=== PATIENT | female | born 1990 | race Caucasian/White ===

== ENCOUNTER → 2017-05-01 | Outpatient (CLI) | payer OTHER ==
--- NOTE | 2017-05-01 20:53 | EKG REPORT ---
SEVERITY:- BORDERLINE ECG - SINUS RHYTHM BORDERLINE T WAVE ABNORMALITIES : Confirmed by: Chelsea Stanford 01-May-2017 20:53:22
== END ==
LOC: CCC 10:29
DX: R11.0 Nausea (principal); R00.0 Tachycardia, unspecified
CPT/HCPCS: 36415; 86677; 93005; 93010

== ENCOUNTER 2017-06-26 00:36 | Emergency (ER) | payer OTHER ==
[2017-06-26] MEDS ORDERED: CEPHALEXIN 500 MG CAPSULE PO ONE (01:09)
--- NOTE | 2017-06-26 01:30 | ER Document Report ---
HPI - HPI Patient complains to provider of: skin abnormality Pain Level: 3 Context: Patient is a 27 year old female that comes to the ED for chief complaint of rash on her right arm and abdomen. Abdomen present for weeks, right arm rash present about 2 days. She denies couch or any significant outdoor exposure. Unsure if relatives have the same. Denies noticing a bite. Denies diabetes. Tetanus UTD. Denies fever/chills, N/V. - REPRODUCTIVE Reproductive: DENIES: : - DERM Skin Color: Normal Past Medical History - General Information source: Patient - Social History Smoking Status: Never Smoker Frequency of alcohol use: None Drug Abuse: None Lives with: Family Family History: Reviewed & Not Pertinent Patient has suicidal ideation: No Patient has homicidal ideation: No - Past Medical History Cardiac Medical History: Reports: Hx Hypercholesterolemia, Hx Hypertension Pulmonary Medical History: Reports: Hx Asthma, Hx Bronchitis Endocrine Medical History: Denies: Hx Diabetes Mellitus Type 1, Hx Diabetes Mellitus Type 2 Renal/ Medical History: Denies: Hx Peritoneal Dialysis GI Medical History: Reports: Hx Gastroesophageal Reflux Disease Past Surgical History: Reports: Hx Cholecystectomy - Immunizations Hx Diphtheria, Pertussis, Tetanus Vaccination: Yes - 2011 [facility] Provider Document - CONSTITUTIONAL General Appearance: WD/WN, No Apparent Distress - INFECTION CONTROL TRAVEL OUTSIDE OF THE [place] IN LAST 30 DAYS: No - HEENT HEENT: Atraumatic, Normocephalic - NECK Neck: Normal Inspection - RESPIRATORY Respiratory: Breath Sounds Normal, No Respiratory Distress O2 Sat by Pulse Oximetry: 98 - CARDIOVASCULAR Cardiovascular: Regular Rate, Regular Rhythm - GI/ABDOMEN Gastrointestinal: Abdomen Soft, Abdomen Non-Tender - BACK Back: Normal Inspection - MUSCULOSKELETAL/EXTREMETIES Musculoskeletal/Extremeties: MAEW, FROM, Non-Tender - DERM Integumentary: Rash - Excoriations over the abdomen with obvious scratched areas with very mild surrounding erythema, no induration or fluctuance. There are 3 areas on the dorsal forearm consistent with papules suspicious for insect bites. There is some surrounding erythema over the areas, no induration, fluctuance, mild amount of clear drainage. No swelling of the forearm, normal forearm exam otherwise. Course - Re-evaluation Re-evalutation: Abdominal picture is consistent with patient scratching. She admits that every night while she sleeps she scratches the areas and she cannot stop. Recommended additional clothing. Areas on the right forearm are consistent with what appears to be insect bite. No obvious fluctuance, induration, or concerning antibiotic. Both areas have some mild surrounding erythema suggesting cellulitis which is early, patient will be placed on Keflex. Discussed follow-up and return precautions. Patient states understanding and agreement. - Vital Signs Vital signs: Temp Pulse Resp BP Pulse Ox 98.5 F 67 20 148/97 H 98 06/26/17 00:37 06/26/17 00:37 06/26/17 00:37 06/26/17 00:37 06/26/17 00:37 Discharge - Discharge Clinical Impression: Skin abnormality Condition: Stable Disposition: HOME, SELF-CARE Additional Instructions: Exam consistent with bites, scratched abdomen, and questionable secondary infection. Take Keflex as prescribed. Keep areas clean, clean with soap and water, if you scratch any areas open, dress with antibiotic, if any area is open later, dress with antibiotic. Return to emergency department for any concerning symptoms including redness, swelling, fever, discolored drainage, or any other concerning symptoms. Prescriptions: Cephalexin Monohydrate [Keflex 500 mg Capsule] 500 mg PO QID #28 capsule Forms: Return to Work
[2017-06-26 02:44] VITALS: BP 124/78
== END 2017-06-26 02:40 | disposition home or self-care (01) ==
LOC: ER 00:36
DX: R21 Rash and other nonspecific skin eruption (principal); L53.9 Erythematous condition, unspecified; I10 Essential (primary) hypertension; J45.909 Unspecified asthma, uncomplicated
CPT/HCPCS: 99283

== ENCOUNTER 2017-08-15 14:44 | Emergency (ER) | payer OTHER ==
--- NOTE | 2017-08-15 15:45 | ER Document Report ---
HPI - HPI Pain Level: 2 Notes: Patient is a 27-year-old female with no significant past medical history presents the ED complaining of an insect bite to her right bicep that she first noticed yesterday. Patient states that there was some redness that she took Benadryl which resolved redness. Patient states that she does continue to have a small red scab in that area and wanted it evaluated. She has not noticed any abscess, drainage, red streaks. She still eating and drink without difficulties. Patient denies any tick bite. Patient states that the bite occurred inside of her home. Patient states that overall the insect bite is much better than it was yesterday. Denies any headache, fever, URI, sore throat , chest pain, palpitations, syncope, cough, shortness of breath, wheeze, dyspnea , abdominal pain, nausea/vomiting/diarrhea, urinary retention, dysuria, hematuria, numbness/tingling, muscle paralysis/weakness. - ROS Notes: REVIEW OF SYSTEMS: CONSTITUTIONAL : Denies fever, chills, or sweats. Denies recent illness. EENT: Denies eye, ear, throat, or mouth pain or symptoms. Denies nasal or sinus congestion or discharge. Denies throat, tongue, or mouth swelling or difficulty swallowing. CARDIOVASCULAR: Denies chest pain. Denies palpitations or racing or irregular heart beat. Denies ankle edema. RESPIRATORY: Denies cough, cold, or chest congestion. Denies shortness of breath, difficulty breathing, or wheezing. GASTROINTESTINAL: Denies abdominal pain or distention. Denies nausea, vomiting , or diarrhea. Denies blood in vomitus, stools, or per rectum. Denies black, tarry stools. Denies constipation. GENITOURINARY: Denies difficulty urinating, painful urination, burning, frequency, blood in urine, or discharge. MUSCULOSKELETAL: Denies back or neck pain or stiffness. Denies joint pain or swelling. SKIN: see hpi NEUROLOGICAL: Denies confusion or altered mental status. Denies passing out or loss of consciousness. Denies dizziness or lightheadedness. Denies headache. Denies weakness or paralysis or loss of use of either side. Denies problems with gait or speech. Denies sensory loss, numbness, or tingling. ALL OTHER SYSTEMS REVIEWED AND NEGATIVE. Dictation was performed using [employer] voice recognition software - REPRODUCTIVE Reproductive: DENIES: : - DERM Skin Color: Normal Past Medical History - Social History Smoking Status: Never Smoker Family History: Reviewed & Not Pertinent - Past Medical History Cardiac Medical History: Reports: Hx Hypercholesterolemia, Hx Hypertension Pulmonary Medical History: Reports: Hx Asthma, Hx Bronchitis Endocrine Medical History: Denies: Hx Diabetes Mellitus Type 1, Hx Diabetes Mellitus Type 2 Renal/ Medical History: Denies: Hx Peritoneal Dialysis GI Medical History: Reports: Hx Gastroesophageal Reflux Disease Past Surgical History: Reports: Hx Cholecystectomy - Immunizations Hx Diphtheria, Pertussis, Tetanus Vaccination: Yes - 2011 [facility] Provider Document - CONSTITUTIONAL Agree With Documented VS: Yes Notes: PHYSICAL EXAMINATION: GENERAL: Well-appearing, well-nourished and in no acute distress. LUNGS: Breath sounds clear to auscultation bilaterally and equal. No wheezes rales or rhonchi. HEART: Regular rate and rhythm without murmurs, rubs, gallops. Musculoskeletal: Rt arm: FROM to passive/active. Strength 5+/5. N/V intact. Extremities: No cyanosis, clubbing, or edema b/l. Peripheral pulses 2+. Capillary refill less than 3 seconds. NEUROLOGICAL: Normal speech, normal gait. Normal sensory, motor exams PSYCH: Normal mood, normal affect. SKIN: Rt anterior arm: a very small 0.1-0.2cm mildly erythemic area with scab noted. No borrows, induration, tenderness, streaks, abscess, or discharge noted. No lymphadenopathy. No necrotic tissue. - INFECTION CONTROL TRAVEL OUTSIDE OF THE [place] IN LAST 30 DAYS: No - RESPIRATORY O2 Sat by Pulse Oximetry: 96 Course - Re-evaluation Re-evalutation: 08/15/17 15:40 Patient is an afebrile, well-hydrated, 27-year-old female who presents the ED with a very mild and small bug bite to her right anterior arm. Vitals are stable. PE is otherwise unremarkable. Low suspicion/risk for any septic joint , sepsis, necrotizing fasciitis, lymphangitis, or other systemic emergent condition at this time. Patient is aware that her condition can change from initial presentation and she needs to monitor symptoms closely and seek medical attention with any acute changes. Recommend thorough washing with soap and water. Apply bacitracin as directed. May apply Benadryl cream for any pruritus. Recheck with your PCM in 3-5 days. Return to the ED with any worsening/concerning symptoms otherwise as reviewed discharge. Patient is in agreement. - Vital Signs Vital signs: Temp Pulse Resp BP Pulse Ox 98.7 F 88 16 126/90 H 96 08/15/17 14:53 08/15/17 14:53 08/15/17 14:53 08/15/17 14:53 08/15/17 14:53 Discharge - Discharge Clinical Impression: Insect bite Qualifiers: Encounter type: initial encounter Qualified Code(s): W57.XXXA - Bitten or stung by nonvenomous insect and other nonvenomous arthropods, initial encounter Condition: Stable Disposition: HOME, SELF-CARE Instructions: Antibiotic Ointment Protection ([facility]), Soap Cleansing ([facility]) Additional Instructions: Apply bacitracin as directed Monitor symptoms for any acute changes Wash with soap and water regularly Benadryl cream if needed Recheck with your PCM in 3-5 days Return to the ED with any worsening symptoms and/or development of fever, headache, chest pain, palpitations, syncope, shortness of breath, trouble breathing, abdominal pain, n/v/d, abscess, red streaks, purulent discharge, or other worsening symptoms that are concerning to you. Forms: Elevated Blood Pressure Referrals: [facility] [Provider Group] - Follow up in 3-5 days
[2017-08-15 16:02] VITALS: BP 139/92
== END 2017-08-15 16:00 | disposition home or self-care (01) ==
LOC: ER 14:44
DX: S40.861A Insect bite (nonvenomous) of right upper arm, initial encounter (principal); W57.XXXA Bitten or stung by nonvenomous insect and other nonvenomous arthropods, initial encounter; Y92.009 Unspecified place in unspecified non-institutional (private) residence as the place of occurrence of the external cause; I10 Essential (primary) hypertension; J45.909 Unspecified asthma, uncomplicated
CPT/HCPCS: 99281